=== PATIENT | male | born 1995 | race Caucasian/White ===

== ENCOUNTER 2016-11-24 12:48 | Emergency (ER) | payer OTHER ==
[2016-11-24 12:59] VITALS: BP 115/55
--- NOTE | 2016-11-24 12:59 | ED Physician Documentation ---
Sore Throat/Dental Pain - HISTORIAN Historian: patient - HPI Chief Complaint: Dental Pain Onset: days ago (yesterday) Context: Possible Infection Associated Symptoms: denies: fever, chills, sore throat Further Comments: yes (Yesterday developed some swelling and pain in the low right jaw area. Seems to be getting worse. Has not taken any medication,.) - ROS CONST: no problems - PAST HX Past History: none Other History: none Immunizations: referred to PCP Allergies/Adverse Reactions: Allergies Allergy/AdvReac Type Severity Reaction Status Date / Time No Known Allergies Allergy Verified 11/24/16 12:59 Home Medications: Ambulatory Orders Medication Instructions Recorded Penicillin V Potassium [Pen V K] 500 mg PO QID #28 tablet 11/24/16 - SOCIAL HX Smoking History: less than 1 pack/day (3/4 ppd) Alcohol Use: none Drug Use: none - FAMILY HX Family History: No - REVIEWED ASSESSMENTS Nursing Assessment Reviewed: Yes Vitals Reviewed: Yes Dental Pain Physical Exam - EXAM General Appearance: alert, mild distress Head/Neck: head nml inspection, trachea midline, thyroid nml, mandibular swelling (R), cervical lymphadenopathy, anterior (right). No: facial erythema Mouth/Throat: lips nml, gums nml, pharynx nml, voice nml, other (tenderness over last molar, wisdom tooth area on lower right) Ear/Nose: nml inspection, TM erythema Respiratory: no resp. distress, breath sounds nml CVS: reg. rate & rhythm, heart sounds nml, murmur Extremities: non-tender Skin: warm/dry Neuro/Psych: No: weakness Discharge Clincal Impression: Pain, dental Prescriptions: Penicillin V Potassium [Pen V K] 500 mg PO QID #28 tablet Additional Instructions: To take Penicillin as directed for possible developing infection. Take some Aleve 2 tablets twice a day as needed for pain. (Take with food). See a dentist for further evaluation. Home Medications: Ambulatory Orders Penicillin V Potassium [Pen V K] 500 mg PO QID #28 tablet 11/24/16 Condition: Stable Disposition: 01 HOME, SELF-CARE Decision to Admit: NO Date of Decison to Admit: 11/24/16 Decision Time: 13:05
== END 2016-11-24 13:18 | disposition home or self-care (01) ==
LOC: ED 12:48
DX: K08.89 Other specified disorders of teeth and supporting structures (principal)
CPT/HCPCS: 99283